=== PATIENT | female | born 1985 | race Caucasian/White ===

== ENCOUNTER 2016-08-12 20:44 | Emergency (ER) | payer MEDICAID ==
[~2016-08-12] VITALS: Ht 162.6 cm; Wt 72.6 kg
--- OUTSIDE RECORDS SUMMARY | 2016-08-12 20:54 | External Medical Summary Rpt ---
Author Author [employer] Organization [employer] Address Unknown Phone Unavailable Purpose Continuity of Care Document - through 2016
--- OUTSIDE RECORDS SUMMARY | 2016-08-12 20:54 | External Medical Summary Rpt ---
Author Author , Organization [employer] Address Unknown Phone Unavailable Purpose Continuity of Care Document - through 2016
--- OUTSIDE RECORDS SUMMARY | 2016-08-12 20:55 | External Medical Summary Rpt ---
Demographics Preferred Language Spanish Marital Status Unknown Bahai Affiliation Unknown Race Unknown Ethnic Group Unknown Author Author , Organization [employer] Address Unknown Phone Unavailable Purpose Continuity of Care Document - through 2016 Immunization No patient found.
--- OUTSIDE RECORDS SUMMARY | 2016-08-12 20:55 | External Medical Summary Rpt ---
Demographics Preferred Language Malaysian Marital Status Unknown Jew Affiliation Unknown Race Unknown Ethnic Group Unknown Author Author , Organization [employer] Address Unknown Phone Unavailable Purpose Continuity of Care Document - through 2016 Immunization No patient found.
[2016-08-12] MEDS ORDERED: LEVOTHYROXIN0.075 M1 PO (21:04)
[2016-08-12] MEDS ORDERED: ALL DAY ALLERGY10 MG PO (21:05)
[2016-08-12 21:24] VITALS: BP 150/93
[2016-08-12] MEDS ORDERED: MOTRIN 400MG.400 MG PO (21:27)
--- NOTE | 2016-08-12 21:27 | Urgent Treatment Center Report ---
History of Present Issue Date/Time Seen by Provider 08/12/162054 Visit Reason Pt arrived:Walked Presenting Problem:PT STATES PAIN TO THE OUTSIDE OF HER NECK ON THE LEFT SIDE. STATES PAIN WHEN SHE SWALLOWS BUT PAIN IS NOT INSIDE HER THROAT. STATES FEELING LIKE HER THROAT BULGES WHEN SHE SWALLOWS. STATES PAIN SHOOTS UP TO HER EAR. STATES SYMPTOMS STARTED AN HOUR AGO Location if Accident: Onset of symptoms date/time:08/12/16/ or onset unknown for:MEDICAL HX UNKNOWN Have you (or family members/close friends) recently traveled outside the [place]? N If Yes, where/when: Have you had exposure to infectious disease within the past month? TB? Other? Specify: Patient states that she is having pain to the left side of her neck on the outside. States that yesterday she was out in the sun and got really sunburned and tonight she was eating cereal and states that she started having pain to the outside of her throat and feels like the pain shoots up to her ear. States that pain started about an hour ago and has not improved. ALLERGIES Coded Allergies: No Known Allergies (08/12/16) Home Medications Reported Medications Levothyroxine Sodium (Levothyroxine 0.075MG) 0.075 MG PO DAILY #30 CETIRIZINE HCL (All Day Allergy) 10 MG PO DAILY #30 History Medical History General CAD? No Angina: No ID: No Hypertension? No Hyperlipidemia? No CHF? No DVT? No PE? No COPD? No Asthma? No Anemia? No GERD? No Gastric ulcers? No GI Bleed? No Hernia? No Thyroid Problems? Yes Hypothyroidism? Yes CVA? No Seizures? No Diabetes? No Renal Insuffiency? No UTI? No Stones? No BPH? No GB Disease: No Nephritic Syndrome? No Asplenia? No Hepatitis? No Sickle Cell Disease? No Arthritis? No Migraines? No Cataracts? No Glaucoma? No MRSA? No HIV? No TB? No Anxiety? No Depression? No Cancer? 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 States that pain shoots up to her ear and her skin feels really tight when it happens Physical Exam Vital Signs Vital Signs Date Time Temp Pulse Resp B/P Pulse O2 O2 Flow FiO2 Ox Delivery Rate 08/13 2123 98.6 99 20 150/93 100 08/12 2118 20 08/12 2058 98.6 99 20 150/ 100 General Appearance Patient sunburned on face, neck, arms and legs, sitting on exam table Ear, Nose, Throat throat mildly red, drainage noted Neck No obvious deformities, skin sunburned, patient would complain of pain and feeling of skin tightness when touched or moved Respiratory Status Yes: trachea midline, chest symmetrical, non tender chest. No: respiratory distress. 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 Discussed case with ER physician Dr Haro and conferred patient. Patient denies difficulty breathing, denies difficulty swallowing admitts to skin feeling tight and pain to outside of her left side of throat when she moves. Medical Decision Making LABS/Meds/Orders Pt receiving controlled substance in ED? No Results/Orders Current Medication Orders Sig/Mary Ellen Start time Last Medication Dose Route Stop Time Status Admin Ketorolac 60 MG ONCE ONE 08/12 2129 AC 08/12 Tromethamine IM 08/12 Methylprednisolone 125 MG ONCE ONE 08/12 2129 AC 08/12 Sodium Succinate IM 08/12 Ketorolac 0 .STK-MED ONE 08/12 2112 DC Tromethamine .ROUTE Methylprednisolone 0 .STK-MED ONE 08/12 2112 DC Sodium Succinate .ROUTE Departure Departure Time of Disposition 2125 Disposition DC Home or Self Care(routine) Clinical Impression Primary Impression: Sunburn, unspecified Secondary Impressions: Pain of skin Condition STABLE Referrals FRANDY MIKE (Family): Tomorrow-Call Office Follow up with family doctor tomorrow Patient Instructions DI for Sunburn, Ibuprofen, Sunburn Additional Instructions Drink plenty of water and gatoraid, poweraid to rehydrate yourself and your skin Use lotion and aloe on skin to help soothe skin Take motrin to help with pain and discomfort of the skin from the sunburn Follow up with family doctor tomorrow Return if needed Discharge Counseling Counseled pt/family regarding diagnosis, medications/RX, home care, follow up needs Prescriptions Current Visit Scripts Ibuprofen (MOTRIN 400MG) 400 MG PO Q6HP PRN pain #40 TAB Start medication on 08/13/16 at [id number]
[2016-08-19] MEDS ORDERED: BENADRYL 50MG C50 MG PO (21:08)
== END 2016-08-12 21:34 | disposition home or self-care (01) ==
LOC: UTC 20:44
DX: L55.9 Sunburn, unspecified (principal)

== ENCOUNTER 2017-02-28 16:45 | Emergency (ER) | payer MEDICAID ==
[~2017-02-28] VITALS: Ht 165.1 cm; Wt 77.1 kg
[~2017-02-28 16:45] MED LIST: ALL DAY ALLERGY10 MG PO; BENADRYL 50MG C50 MG PO; LEVOTHYROXIN0.075 M1 PO; MOTRIN 400MG.400 MG PO
--- OUTSIDE RECORDS SUMMARY | 2017-02-28 16:54 | External Medical Summary Rpt | CCD ---
Author Author , MAXX LILLY Address Unknown Phone [email or web address] Purpose Continuity of Care Document - through 2016 Problems Code Diagnosis DOS Provider Status K62.5 HEMORRHAGE OF ANUS AND RECTUM
--- OUTSIDE RECORDS SUMMARY | 2017-02-28 16:54 | External Medical Summary Rpt | CCD ---
Author Author , MAXX LILLY Address Unknown Phone [email or web address] Purpose Continuity of Care Document - through 2016 Problems Code Diagnosis DOS Provider Status K62.5 HEMORRHAGE OF ANUS AND RECTUM
--- OUTSIDE RECORDS SUMMARY | 2017-02-28 16:54 | External Medical Summary Rpt | CCD ---
Author Author , MAXX LILLY Address Unknown Phone [email or web address] Immunization Name Date Rout CVX Reac Dose Comm Prov Is Faci e tion ent ider Refu lity Give sed n Infl 01-0 140 999 Hist D114 No D114 uenz 1-20 oric 02 02 a, 14 al P-Fr Info ee rmat ion - Sour ce Unsp ecif ied
--- OUTSIDE RECORDS SUMMARY | 2017-02-28 16:54 | External Medical Summary Rpt | CCD ---
Author Author , MAXX LILLY Address Unknown Phone Immunization Name Date Rout CVX Reac Dose Comm Prov Is Faci e tion ent ider Refu lity Give sed n Infl 01-0 140 999 Hist D114 No D114 uenz 1-20 oric 02 02 a, 14 al P-Fr Info ee rmat ion - Sour ce Unsp ecif ied
[2017-02-28] MEDS ORDERED: SYNTHROID0.137 MG PO (16:59)
[2017-02-28 17:11] LABS: URINE BILIRUBIN - DIPSTICK NEGATIVE (NEG); URINE BLOOD TRACE (NEG)
[2017-02-28] MEDS ORDERED: LEVOTHYROXIN0.075 M1 PO (17:27)
--- NOTE | 2017-02-28 17:43 | Emergency Room Report ---
History of Present Illness Time Seen by 1716 Presenting Problem in Triage Pt arrived:Walked Presenting Problem:PT IS C/O LLQ PAIN THAT STARTED YESTERDAY. PT IS ALSO C/O NAUSEA BUT DENIES V/D. 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 N Clinical Suspician of Infection? Y Mental Status: 1 - Regular (Normal Baseline) Sepsis Risk:Possible Sepsis Risk Have you (or family members/close friends) recently traveled outside the [place]? N If Yes, where/when: Have you had exposure to infectious disease within the past month? TB? Other? Specify: RLQ abdominal pain, gradual onset yesterday, no appetite, moving bowels well, has chills but no fever, no urinary sx, no vaginal d/c or bleeding. Is s/p BTL and is A3 with one stillborn. Pain nonradiating. Feels like "burning" sensation to RLQ. Has had choly and c sections; still has an appendix. No vomiting. No blood from above or below. ALLERGIES Coded Allergies: No Known Allergies (08/19/16) Home Medications Reported Medications Levothyroxine Sodium (Levothyroxine 0.075MG) 0.075 MG PO DAILY #30 History Medical History General CAD? No Angina: No DE: No Hypertension? No Hyperlipidemia? No CHF? No DVT? No PE? No COPD? No Asthma? No Anemia? No GERD? No Gastric ulcers? No GI Bleed? No Hernia? No Thyroid Problems? Yes Hypothyroidism? Yes CVA? No Seizures? No Diabetes? No Renal Insuffiency? No End Stage Renal Disease? No UTI? No Stones? No BPH? No GB Disease: No Nephritic Syndrome? No Asplenia? No Hepatitis? No Sickle Cell Disease? No Arthritis? No Migraines? No Cataracts? No Glaucoma? No MRSA? No HIV? No TB? No Anxiety? No Depression? No Cancer? No More? 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 Physical Exam Vital Signs Vital Signs Date Time Temp Pulse Resp B/P Pulse O2 O2 Flow FiO2 Ox Delivery Rate 02/28 1856 98.7 83 18 102/69 100 02/28 1821 18 02/28 1718 98.7 101 20 146/97 99 02/28 1656 98.7 101 20 146/97 99 General Appearance normal appearance, WD/WN, mild distress Eye Exam - bilateral eye normal exam, bilateral eye PERRL, bilateral eye EOMI Neck normal inspection, non-tender, supple, full range of motion Respiratory Status Yes: trachea midline, chest symmetrical, non tender chest. No: respiratory distress, tender on palpation, use of accessory muscles, pain on inspiration, pain on expiration, productive cough, non productive cough. Lung Sounds bilateral: normal breath sounds, lungs clear. Cardiovascular normal exam, regular rate/rhythm, no peripheral edema, no gallop, no JVD, no murmur, no rub, normal peripheral pulses Gastrointestinal normal bowel sounds, soft, no pulsatile mass, no guarding, no rebound, tenderness (tender RLQ, no r/g) Back no CVA tenderness Extremities normal range of motion, normal inspection Strength 5 Upper Ext (L), 5 Upper Ext (R), 5 Lower Ext (L), 5 Lower Ext (R) Neurologic alert, normal exam, no motor/sensory deficits, oriented x 3 Glascow Coma Scale Glascow Coma Scale Response Value EYE response: 4 Spontaneously 4 MOTOR response: 6 OBEYS 6 VERBAL response: 5 Oriented & Converses 5 Total 15 Skin intact, normal color, warm/dry, no rash cons.w/shingles Medical Decision Making LABS/Meds/Orders Pt receiving controlled substance in ED? No Results/Orders Laboratory Tests 02/28/17 1754: Sodium 139, Potassium 4.0, Chloride 104, Carbon Dioxide 28, BUN 12, Creatinine 0.9, Estimated Creat Clear 110, Estimated GFR (MDRD) 73, Glucose 83, Calcium 9.4 , Total Bilirubin 0.4, AST 16, ALT 19, Alkaline Phosphatase 79, Total Protein 8.5 H, Albumin 4.2, Globulin 4.3 H, Albumin/Globulin Ratio 1.0 L, WBC 4.7 L, RBC 4.48, Hgb 13.9, Hct 41.7, MCV 93.0, RDW 12.2, Plt Count 203, MPV 9.3, Gran % 52.2, Gran # 2.4, Lymphocytes % 31.3, Monocytes % 9.0, Eosinophils % 6.4, Basophils % 1.1, Lymphocytes # 1.5, Monocytes # 0.4, Eosinophils # 0.3, Basophils # 0.1, PUBS MCHC 33.3, MCH 31.0 02/28/17 170: Urine Color YELLOW, Urine Appearance Clear, Urine pH 6.5, Ur Specific [place] 1.020, Urine Protein NEGATIVE, Urine Ketones NEGATIVE, Urine Blood TRACE H, Urine Nitrate NEGATIVE, Urine Bilirubin NEGATIVE, Urine Urobilinogen 0.2, Ur Leukocyte Esterase NEGATIVE, Urine Glucose NEGATIVE Current Medication Orders Sig/Mary Ellen Start time Last Medication Dose Route Stop Time Status Admin Ketorolac 0 .STK-MED ONE 02/29 1816 DC Tromethamine .ROUTE Ondansetron HCl 0 .STK-MED ONE 02/28 181 DC .ROUTE Ketorolac 30 MG ONCE ONE 02/28 1800 DC 02/28 Tromethamine IV 02/28 1801 1821 Ondansetron HCl 4 MG ONCE ONE 02/28 1800 DC 02/28 IV 02/28 1801 1821 Sodium Chloride 10 ML PRN PRN 02/28 1745 AC IV 03/01 1739 Orders Procedure Date/time Status DIET-NOTHING BY MOUTH 03/[address] ABD & PELVIS W/O CONTRAST 02/[address] ABD/PELVIS REQ 02/28 1739 Complete IV SALINE LOCK 02/28 1739 Active CBC WITH AUTO DIFF 02/28 1739 Complete CHEM 12 PROFILE 02/28 1739 Complete URINE 02/28 1733 Complete UTC URINE DIPSTICK 02/28 1700 Complete XRAY/CT/US XRAY/CT/US CT abdomen, pelvis CT interpretation by reviewed by me ([facility] report reviewed) Time results known: 1910 CT Results abnormal, colitis; has probable R ovarian cyst Progress ED Progress Notes Date 02/28/17 Time 1913 Comment Pos relief of pain w/ Toradol Departure Departure Time of Disposition 1914 Disposition DC Home or Self Care(routine) Clinical Impression Primary Impression: Colitis Secondary Impressions: Right lower quadrant abdominal pain Condition STABLE Referrals Jerel KIM,Mike Esteban MD,FRANDY Mancia (Family) Patient Instructions DI for Colitis Additional Instructions Clear liquids overnight, see Dr. Plata for follow up in one to four days; Rx Bentyl; Rx Naproxen; see telegraph messenger of choice for further work up as CT showed possible ovarian cyst but no fluid today, and you may need a follow up outpatient ultrasound to evaluate this possibility further. Discharge Counseling Counseled pt/family regarding diagnosis, test results, medications/RX, home care, follow up needs Prescriptions Current Visit Scripts NAPROXEN (NAPROXEN 500MG TAB) 500 MG PO BIDP PRN pain #20 TAB Dicyclomine Hcl (Bentyl (Generic) 10MG Capsule) 10 MG PO TID PRN cramping #10 CAP ED Critical Care Critical Care No at 1918
[2017-02-28 18:07] LABS: HEMOGLOBIN 13.9 g/dL (12.2-16.2); LYMPH # 1.5 K/mm3 (0.7-4.5); LYMPH % 31.3 % (10-50.0)
[2017-02-28] MEDS ORDERED: BENTYL GENERIC10 MG PO (19:18)
[2017-02-28] MEDS ORDERED: NAPROXEN SODIU500 MG PO (19:18)
[2017-02-28 19:30] VITALS: BP 102/69
--- NOTE | 2017-03-01 08:05 | RADIOLOGY REPORT PS360 ---
CT ABD PELVIS W/O CONTRAST CLINICAL INDICATION: Right lower quadrant pain with nausea and vomiting RLQ ABDOMINAL PAIN ORDERING PHYSICIAN: Angelica Upton MD PATIENT AGE: 31 years COMPARISON: None TECHNIQUE: Axial images obtained with sagittal and coronal reformats. PROCEDURE: Oral Contrast: None IV Contrast: None . FINDINGS: No acute finding in the lung bases. Prior cholecystectomy. No ductal dilatation. The liver, spleen, adrenal glands, and pancreas are unremarkable. No renal calculi or hydronephrosis. No ureteral calculi. Unremarkable appearing urinary bladder. There is mild diffuse thickening of the colon throughout slightly more prominent in the ascending colon consistent with colitis. Unremarkable appendix. No evidence of diverticulitis. Right ovary somewhat prominent with hypoattenuation centrally suggesting a 2 cm ovarian cyst. Left millimeter left ovarian cyst. There is a minimal amount fluid in the cul-de-sac. No intestinal obstruction or free air. No acute bony anomalies. IMPRESSION: 1. Mild diffuse thickening of the colon consistent with colitis. 2. Bilateral ovarian cyst. 3. No evidence of appendicitis or obstructing ureteral calculus
== END 2017-02-28 19:32 | disposition home or self-care (01) ==
LOC: UTC 16:45 → ER 16:52
PROVIDERS: Emergency Medicine; Nurse Practitioner Family
DX: K52.9 Noninfective gastroenteritis and colitis, unspecified (principal); E03.9 Hypothyroidism, unspecified
CPT/HCPCS: J2405